=== PATIENT | female | born 1940 | race Caucasian/White ===

== ENCOUNTER 2017-01-14 05:18 | Inpatient (IN) | payer MEDICARE ==
[~2017-01-14 05:18] MED LIST: ASPIRIN81 M1 PO; DIAZEPAM5 M2 PO; ESTRADIOL1 EA10 TD; FLAGYL500 M1 PO; LEVAQUIN500 M1 PO; LIPITOR20 M1 PO; METOPROLOL TART25 M1 PO; NORCO 5-325 TA1 EACH PO; NORVASC5 M2 PO; PROBIOTIC1 EA10 PO; RANITIDINE HCL150 M2 PO; TRILIPIX135 M1 PO; VITAMIN D1000 UNI2 PO
[2017-01-14 06:52] LABS: ANION GAP 13 mmol/L (0-20); BLOOD UREA NITROGEN 8 mg/dl (6-24); CALCIUM 8.7 mg/dl (8.5-10.5); CARBON DIOXIDE-VENOUS 25 mmol/L (22-32); CHLORIDE 109 mmol/l (96-110); CREATININE 0.78 mg/dl (0.50-1.10); GLUCOSE 94 mg/dL (70-110); POTASSIUM 3.3 mmol/L (3.7-5.1); SODIUM 144 mmol/L (135-145); eGFR VALUE FOR BLACK 86 mL/Min
[2017-01-15 12:09] LABS: BASO % 0.1 % (0-2); HGB-HEMOGLOBIN 12.2 gm/dl (12.0-15.5); IMMATURE GRANULOCYTES ABSOLUTE 0.04 tho/cmm (0-0.03); IMMATURE GRANULOCYTES PERCENT 0.3 % (0-0.3); LYMPH % 7.2 % (20-45); MCH (MEAN CORPUSCULAR HGB) 31.8 pg (28.0-32.0); MCHC MEAN CORPUSCULAR HGB CONC 33.9 % (32.0-36.0); MCV (MEAN CELL VOLUME) 93.8 fl (82.0-96.0); MEAN PLATELET VOLUME 10.8 cmc (9.4-12.4); MONO % 8.1 % (0-12); MONOCYTE ABSOLUTE COUNT 1.2 tho/cmm (0.0-1.2); NEUTROPHIL ABSOLUTE COUNT 11.9 tho/cmm (1.6-8.0); NEUTROPHIL-AUTOMATED 11.9 tho/cmm (1.6-8.0); NEUTROPHILS % 84.3 % (40-80); PLATELET COUNT 298 tho/cmm (150-450); RED BLOOD COUNT 3.84 mil/cmm (4.00-5.20); RED CELL DISTRIBUTION WIDTH 14.6 % (12.4-16.4); WHITE BLOOD COUNT 14.2 tho/cmm (4.0-10.0)
[2017-01-15 12:22] LABS: ANION GAP 11 mmol/L (0-20); BLOOD UREA NITROGEN 7 mg/dl (6-24); CALCIUM 8.3 mg/dl (8.5-10.5); CARBON DIOXIDE-VENOUS 27 mmol/L (22-32); CHLORIDE 108 mmol/l (96-110); CREATININE 0.67 mg/dl (0.50-1.10); MAGNESIUM 1.7 mg/dl (1.3-2.6); PHOSPHOROUS 1.2 mg/dl (2.5-4.9); POTASSIUM 3.9 mmol/L (3.7-5.1); SODIUM 142 mmol/L (135-145); eGFR VALUE FOR BLACK >90 mL/Min
[2017-01-15 12:25] LABS: GLUCOSE 150 mg/dL (70-110)
--- NOTE | 2017-01-15 21:23 | NUR ---
VIRTUAL CARE NOTE: ATTEMPTED TO ROUND ON PT SEVERAL TIMES. EITHER WITH STAFF OR SLEEPING. WILL CONTINUE WITH CHART REVIEW.
[2017-01-16 05:51] LABS: BASO % 0.2 % (0-2); EOS % 0.2 % (0-7); HGB-HEMOGLOBIN 11.8 gm/dl (12.0-15.5); IMMATURE GRANULOCYTES ABSOLUTE 0.02 tho/cmm (0-0.03); IMMATURE GRANULOCYTES PERCENT 0.2 % (0-0.3); LYMPH % 10.2 % (20-45); LYMPH ABSOLUTE COUNT 1.2 tho/cmm (0.8-4.5); MCH (MEAN CORPUSCULAR HGB) 31.6 pg (28.0-32.0); MCHC MEAN CORPUSCULAR HGB CONC 33.7 % (32.0-36.0); MCV (MEAN CELL VOLUME) 93.8 fl (82.0-96.0); MONO % 7.5 % (0-12); MONOCYTE ABSOLUTE COUNT 0.9 tho/cmm (0.0-1.2); NEUTROPHIL ABSOLUTE COUNT 9.6 tho/cmm (1.6-8.0); NEUTROPHIL-AUTOMATED 9.6 tho/cmm (1.6-8.0); NEUTROPHILS % 81.7 % (40-80); PLATELET COUNT 278 tho/cmm (150-450); RED BLOOD COUNT 3.73 mil/cmm (4.00-5.20); RED CELL DISTRIBUTION WIDTH 14.8 % (12.4-16.4); WHITE BLOOD COUNT 11.8 tho/cmm (4.0-10.0)
[2017-01-16 06:01] LABS: ANION GAP 9 mmol/L (0-20); BLOOD UREA NITROGEN 5 mg/dl (6-24); CALCIUM 8.3 mg/dl (8.5-10.5); CARBON DIOXIDE-VENOUS 28 mmol/L (22-32); CHLORIDE 107 mmol/l (96-110); GLUCOSE 129 mg/dL (70-110); MAGNESIUM 1.7 mg/dl (1.3-2.6); PHOSPHOROUS 1.2 mg/dl (2.5-4.9); POTASSIUM 3.6 mmol/L (3.7-5.1); SODIUM 140 mmol/L (135-145); eGFR VALUE FOR BLACK >90 mL/Min
--- NOTE | 2017-01-16 21:54 | NUR ---
VN ROUNDING/LEADER ROUNDING-PATIENT SLEEPING-DID NOT DISTURB
[2017-01-17 05:36] LABS: BASO % 0.4 % (0-2); EOS % 2.1 % (0-7); EOSINOPHIL ABSOLUTE COUNT 0.1 tho/cmm (0.0-0.7); HCT-HEMATOCRIT 32.4 % (34.0-49.0); IMMATURE GRANULOCYTES ABSOLUTE 0.01 tho/cmm (0-0.03); IMMATURE GRANULOCYTES PERCENT 0.1 % (0-0.3); LYMPH % 18.1 % (20-45); LYMPH ABSOLUTE COUNT 1.2 tho/cmm (0.8-4.5); MCH (MEAN CORPUSCULAR HGB) 31.9 pg (28.0-32.0); MCV (MEAN CELL VOLUME) 93.9 fl (82.0-96.0); MEAN PLATELET VOLUME 10.5 cmc (9.4-12.4); MONO % 9.6 % (0-12); MONOCYTE ABSOLUTE COUNT 0.7 tho/cmm (0.0-1.2); NEUTROPHIL ABSOLUTE COUNT 4.7 tho/cmm (1.6-8.0); NEUTROPHIL-AUTOMATED 4.7 tho/cmm (1.6-8.0); NEUTROPHILS % 69.7 % (40-80); PLATELET COUNT 250 tho/cmm (150-450); RED BLOOD COUNT 3.45 mil/cmm (4.00-5.20); RED CELL DISTRIBUTION WIDTH 14.6 % (12.4-16.4); WHITE BLOOD COUNT 6.7 tho/cmm (4.0-10.0)
[2017-01-17 05:46] LABS: ANION GAP 10 mmol/L (0-20); BLOOD UREA NITROGEN 5 mg/dl (6-24); CALCIUM 8.2 mg/dl (8.5-10.5); CARBON DIOXIDE-VENOUS 27 mmol/L (22-32); CHLORIDE 109 mmol/l (96-110); CREATININE 0.68 mg/dl (0.50-1.10); GLUCOSE 105 mg/dL (70-110); MAGNESIUM 1.8 mg/dl (1.3-2.6); PHOSPHOROUS 1.5 mg/dl (2.5-4.9); POTASSIUM 3.8 mmol/L (3.7-5.1); SODIUM 142 mmol/L (135-145); eGFR VALUE FOR BLACK >90 mL/Min
--- NOTE | 2017-01-17 19:48 | NUR ---
VN/LEADER ROUNDING-PATIENT LAYING IS BED GETTING SLEEPY FROM PAIN MED. STATES PAIN IS DOING FINE AFTER TAKING PAIN MEDS. TOLERATING CLEAR LIQUIDS WITH NO NAUSEA BUT TAKING SLOW. ASKED ABOUT CALL LIGHTS AND COMMENTED SHE SET IN SHOWER EARLIER TODAY AND FROZE WHILE WAITING FOR STAFF TO COME HELP HER. THINKS NURSES ARE SPARSE ON WEEKEND AND WE NEED TO HIRE MORE HELP. NO OTHER CONCERNS OR QUESTIONS. DID ENCOURAGE HER TO AMBULATE AT LEAST 4X A DAY AND SHE SAID NO ONE TOLD HER THAT.
[2017-01-18 04:23] LABS: BASO % 0.5 % (0-2); EOS % 3.8 % (0-7); EOSINOPHIL ABSOLUTE COUNT 0.2 tho/cmm (0.0-0.7); HCT-HEMATOCRIT 32.1 % (34.0-49.0); HGB-HEMOGLOBIN 10.6 gm/dl (12.0-15.5); IMMATURE GRANULOCYTES ABSOLUTE 0.02 tho/cmm (0-0.03); IMMATURE GRANULOCYTES PERCENT 0.4 % (0-0.3); MCV (MEAN CELL VOLUME) 93.9 fl (82.0-96.0); MEAN PLATELET VOLUME 10.5 cmc (9.4-12.4); MONO % 11.7 % (0-12); MONOCYTE ABSOLUTE COUNT 0.6 tho/cmm (0.0-1.2); NEUTROPHIL ABSOLUTE COUNT 3.5 tho/cmm (1.6-8.0); NEUTROPHIL-AUTOMATED 3.5 tho/cmm (1.6-8.0); NEUTROPHILS % 64.6 % (40-80); PLATELET COUNT 258 tho/cmm (150-450); RED BLOOD COUNT 3.42 mil/cmm (4.00-5.20); RED CELL DISTRIBUTION WIDTH 14.3 % (12.4-16.4); WHITE BLOOD COUNT 5.5 tho/cmm (4.0-10.0)
[2017-01-18 04:40] LABS: ANION GAP 10 mmol/L (0-20); BLOOD UREA NITROGEN 5 mg/dl (6-24); CALCIUM 8.2 mg/dl (8.5-10.5); CARBON DIOXIDE-VENOUS 27 mmol/L (22-32); CHLORIDE 111 mmol/l (96-110); CREATININE 0.57 mg/dl (0.50-1.10); GLUCOSE 101 mg/dL (70-110); MAGNESIUM 2.1 mg/dl (1.3-2.6); PHOSPHOROUS 2.6 mg/dl (2.5-4.9); POTASSIUM 3.7 mmol/L (3.7-5.1); SODIUM 144 mmol/L (135-145); eGFR VALUE FOR BLACK >90 mL/Min
--- NOTE | 2017-01-18 16:47 | NUR ---
VIRTUAL CARE NOTE: PT RESTING ON BED, STATES FEELING OK, TOLERATES CLEAR LIQ. DENIES BM TODAY. PT REPORTS HAS BEEN WALKING 5 TIMES TODAY ALREADY. PLAN OF CARE REINFORCED, PT DENIES QUESTIONS OR CONCERNS.
[2017-01-19 04:27] LABS: BASO % 0.6 % (0-2); EOS % 3.9 % (0-7); EOSINOPHIL ABSOLUTE COUNT 0.2 tho/cmm (0.0-0.7); HGB-HEMOGLOBIN 10.5 gm/dl (12.0-15.5); IMMATURE GRANULOCYTES ABSOLUTE 0.02 tho/cmm (0-0.03); IMMATURE GRANULOCYTES PERCENT 0.4 % (0-0.3); LYMPH % 18.8 % (20-45); MCH (MEAN CORPUSCULAR HGB) 31.5 pg (28.0-32.0); MCHC MEAN CORPUSCULAR HGB CONC 33.9 % (32.0-36.0); MCV (MEAN CELL VOLUME) 93.1 fl (82.0-96.0); MEAN PLATELET VOLUME 10.3 cmc (9.4-12.4); MONO % 11.6 % (0-12); MONOCYTE ABSOLUTE COUNT 0.6 tho/cmm (0.0-1.2); NEUTROPHIL ABSOLUTE COUNT 3.5 tho/cmm (1.6-8.0); NEUTROPHIL-AUTOMATED 3.5 tho/cmm (1.6-8.0); NEUTROPHILS % 64.7 % (40-80); PLATELET COUNT 300 tho/cmm (150-450); RED BLOOD COUNT 3.33 mil/cmm (4.00-5.20); RED CELL DISTRIBUTION WIDTH 14.2 % (12.4-16.4); WHITE BLOOD COUNT 5.4 tho/cmm (4.0-10.0)
[2017-01-19 04:29] LABS: ANION GAP 10 mmol/L (0-20); BLOOD UREA NITROGEN 4 mg/dl (6-24); CALCIUM 8.3 mg/dl (8.5-10.5); CARBON DIOXIDE-VENOUS 27 mmol/L (22-32); CHLORIDE 110 mmol/l (96-110); GLUCOSE 99 mg/dL (70-110); MAGNESIUM 1.7 mg/dl (1.3-2.6); PHOSPHOROUS 2.8 mg/dl (2.5-4.9); POTASSIUM 3.7 mmol/L (3.7-5.1); SODIUM 143 mmol/L (135-145); eGFR VALUE FOR BLACK >90 mL/Min
--- NOTE | 2017-01-19 19:00 | NUR ---
VIRTUAL CARE NOTE: PT. IN BED, WITH AT HER SIDE, STATES ABD IN SORE AND HAD SOME TYLENOL RECENTLY. STATES WAS HAPPY TO FINALLY HAVE SOME "REAL FOOD" SHE HADN'T HAD IN SEVERAL MONTHS. ENCOURAGED PT. TO CONTINUE WALK AND USE BREATHING MACHINE. EDUCATION ALSO PROVIDED ON DIET TIPS FOR FREQUENT SMALL MEALS FOR AT HOME PROVIDED. DENIES FURTHER NEEDS AT THIS TIME, INSTRUCTED TO CALL FOR FUTURE NEEDS. STATES VERBAL UNDERSTANDING.
[2017-01-20 05:50] LABS: BASO % 0.7 % (0-2); EOS % 4.2 % (0-7); EOSINOPHIL ABSOLUTE COUNT 0.3 tho/cmm (0.0-0.7); HCT-HEMATOCRIT 31.8 % (34.0-49.0); HGB-HEMOGLOBIN 10.7 gm/dl (12.0-15.5); IMMATURE GRANULOCYTES ABSOLUTE 0.06 tho/cmm (0-0.03); LYMPH % 20.7 % (20-45); LYMPH ABSOLUTE COUNT 1.2 tho/cmm (0.8-4.5); MCH (MEAN CORPUSCULAR HGB) 31.4 pg (28.0-32.0); MCHC MEAN CORPUSCULAR HGB CONC 33.6 % (32.0-36.0); MCV (MEAN CELL VOLUME) 93.3 fl (82.0-96.0); MEAN PLATELET VOLUME 10.1 cmc (9.4-12.4); MONO % 10.6 % (0-12); MONOCYTE ABSOLUTE COUNT 0.6 tho/cmm (0.0-1.2); NEUTROPHIL ABSOLUTE COUNT 3.7 tho/cmm (1.6-8.0); NEUTROPHIL-AUTOMATED 3.7 tho/cmm (1.6-8.0); NEUTROPHILS % 62.8 % (40-80); PLATELET COUNT 316 tho/cmm (150-450); RED BLOOD COUNT 3.41 mil/cmm (4.00-5.20); RED CELL DISTRIBUTION WIDTH 14.2 % (12.4-16.4)
[2017-01-20 06:21] LABS: ANION GAP 11 mmol/L (0-20); BLOOD UREA NITROGEN 7 mg/dl (6-24); CALCIUM 8.7 mg/dl (8.5-10.5); CARBON DIOXIDE-VENOUS 26 mmol/L (22-32); CHLORIDE 111 mmol/l (96-110); CREATININE 0.69 mg/dl (0.50-1.10); GLUCOSE 82 mg/dL (70-110); MAGNESIUM 1.8 mg/dl (1.3-2.6); PHOSPHOROUS 3.6 mg/dl (2.5-4.9); POTASSIUM 3.7 mmol/L (3.7-5.1); SODIUM 144 mmol/L (135-145); eGFR VALUE FOR BLACK >90 mL/Min
[2017-01-20] MEDS ORDERED: LORTAB 5-325 M1 EAC1 PO (09:05)
[2017-01-20] MEDS ORDERED: TYLENOL325 M2 PO (09:06)
== END 2017-01-20 10:20 | disposition home health service (06) | DRG 330 ==
LOC: SHSA 05:18 → ORW 09:22 → PACU 11:23 → 5WD 12:45
PROVIDERS: Anesthesiology; Surgery; ADMIT Surgery
PROC: 0W9J4ZZ Drainage of Pelvic Cavity, Percutaneous Endoscopic Approach (ICD-10-PCS; principal; 2017-01-14)
PROC: 0DTN4ZZ Resection of Sigmoid Colon, Percutaneous Endoscopic Approach (ICD-10-PCS; principal; 2017-01-14)
DX: K57.20 Diverticulitis of large intestine with perforation and abscess without bleeding (principal); I10 Essential (primary) hypertension; I25.10 Atherosclerotic heart disease of native coronary artery without angina pectoris; E78.5 Hyperlipidemia, unspecified; F41.1 Generalized anxiety disorder; Z79.899 Other long term (current) drug therapy
CPT/HCPCS: C9113; C9290; J1170; J1335; J1644; J2250; J2405; J2543; J3010; J3475; J3480; J7030; J7050